=== PATIENT | female | born 1960 | race Caucasian/White ===

== ENCOUNTER → 2017-06-23 | Outpatient (CLI) | payer MEDICARE ==
[2017-06-23 15:57] LABS: HEMOGLOBIN 14.1 g/dL (12.2-16.2); LYMPH # 1.6 K/mm3 (0.7-4.5); LYMPH % 33.4 % (10-50.0)
[2017-06-23 16:15] LABS: BUN 9 mg/dL (7-18)
[2017-06-23 16:35] LABS: GFR (ESTIMATED) 51 ML/MIN (59-)
== END ==
LOC: LAB 15:27
PROVIDERS: Physician Assistant
DX: R11.0 Nausea (principal); E11.9 Type 2 diabetes mellitus without complications; F41.9 Anxiety disorder, unspecified; E78.5 Hyperlipidemia, unspecified